=== PATIENT | male | born 1980 | race Two or more races ===

== ENCOUNTER → 2022-10-11 | Emergency (ER) | payer OTHER ==
[~2022-10-11] VITALS: Ht 190.5 cm; Wt 128.4 kg
[~2022-10-11] MED LIST: LEVSIN/SL0.125 MG SL; PEPCID40 MG PO; PHENERGAN25 MG PO
== END | disposition home or self-care (01) ==
LOC: ER 14:01
DX: J03.80 Acute tonsillitis due to other specified organisms (principal); Z20.822 Contact with and (suspected) exposure to COVID-19; Z88.6 Allergy status to analgesic agent